=== PATIENT | male | born 1980 | race Caucasian/White ===

== ENCOUNTER 2020-11-26 15:48 | Outpatient (REF) | payer OTHER, SELFPAY ==
--- NOTE | ~2020-11-26 | XR_ITS ---
EXAMINATION: XR CHEST CLINICAL INFORMATION: History of sarcoma. 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 COMPARISON: None TECHNIQUE: 2 views of the chest were obtained. FINDINGS: The cardiac silhouette does not appear enlarged. Hilar and mediastinal contours are unremarkable. There are 2 surgical staple lines seen in the mid and lower right lung. There is an area of lateral pleural thickening and increased adjacent parenchymal density in the right upper lobe. This partially overlies the right scapula. The lungs are otherwise clear. There is no pleural effusion or pneumothorax. There is a surgical clip in the right axilla. There are degenerative changes of the thoracic spine. There are median sternotomy wires. XR/XR chest 2V IMPRESSION: 2 surgical staple lines seen in the right lung. Pleural-parenchymal change in the lateral right upper lobe. This partially overlies the right scapula. Comparison with old outside exams recommended.
--- NOTE | 2020-11-26 15:56 | ECG_ITS ---
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 Rate : 080 BPM Atrial Rate : 080 BPM P-R Int : 124 ms QRS Dur : 086 ms QT Int : 378 ms P-R-T Axes : 049 015 034 degrees QTc Int : 435 ms Normal sinus rhythm Normal ECG No previous ECGs available Referred By: Seng Cavazos Electronically Signed By:ROSS ALVARADO MD
[2020-11-26 16:26] LABS: MANUAL DIFF FLAG NO
[2020-11-26 16:27] LABS: Basophils Absolute Auto 0.1 X10*3/uL (0.0-0.2); Basophils Percent Auto 0.7 % (0-2); Eosinophils Absolute Auto 0.1 X10*3/uL (0.0-0.4); Hematocrit 43.8 % (42-52); Hemoglobin 14.9 g/dl (14.0-18.0); Imm Gran Abs Auto 0.03 X10*3/uL (0.00-0.03); Imm Gran Pct Auto 0.4 % (0.0-0.4); Lymphocytes Absolute Auto 1.3 X10*3/uL (1.2-4.9); Lymphocytes Percent Auto 18.8 % (20-40); Mean Corpuscular Hemoglobin 32.2 pg (27.0-33.0); Mean Corpuscular Volume 94.6 fL (80-98); Mean Platelet Volume 8.7 fL (9.4-12.4); Monocytes Absolute Auto 0.5 X10*3/uL (0.1-1.2); Monocytes Percent Auto 7.1 % (2-11); Neutrophils Absolute Auto 4.9 X10*3/uL (2.0-8.3); Platelet Count 242 X10*3/uL (160-400); Red Blood Count 4.63 X10*6/uL (4.60-5.80); Red Cell Distribution Width 12.5 % (11.0-16.0); White Blood Count 6.9 X10*3/uL (4.8-10.8)
[2020-11-26 17:01] LABS: Alanine Aminotransferase 43 U/L (0-40); Albumin Level 4.5 g/dL (3.5-5.0); Alkaline Phosphatase 46 U/L (39-117); Anion Gap 14 (12-20); Aspartate Amino Transferase 54 U/L (5-37); Bilirubin Total 0.8 mg/dL (0.0-1.0); Blood Urea Nitrogen 15 mg/dL (9-16); Calcium 8.9 mg/dL (8.4-10.2); Carbon Dioxide 30 mmol/L (22-29); Chloride 100 mmol/L (96-108); Estimated Glomerular Filt Rate > 60; Glucose Random 95 mg/dL (60-115); Sodium 140 mmol/L (135-145)
== END 2020-11-26 15:49 | disposition home or self-care (01) ==
LOC: HO.LAB 15:48
PROVIDERS: Visit Provider Family Medicine
DX: C49.9 Malignant neoplasm of connective and soft tissue, unspecified (principal); C78.00 Secondary malignant neoplasm of unspecified lung
CPT/HCPCS: 36415; 71046; 80053; 85025; 93005

== ENCOUNTER → 2020-12-06 13:35 | Outpatient (BNVA) | payer OTHER, SELFPAY | PROVIDERS: PCP Family Medicine; Visit Provider Surgery | DX: K40.90 Unilateral inguinal hernia, without obstruction or gangrene, not specified as recurrent (principal) | CPT/HCPCS: 99202 ==

== ENCOUNTER 2020-12-13 08:11 | Day surgery (SDC) | payer OTHER, SELFPAY ==
--- NOTE | 2020-12-12 10:16 | P.CONAN_ITS ---
Documented by User: Ludivina Amador 12/12/20 11:10 HPI - Anesthesia Eval Consult details Narrative: 40yo M for Right Hernia Repair Inguinal with Mesh s/p bilateral pulm nodules removed 2006 per pcp note. No lobectomy noted. 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 If so, by whom?: No Advance Directives: No Advance Directives Information Provided: No Meds Allergies Allergy/AdvReac Type Severity Reaction Status Date / Time No Known Allergies Allergy Verified 12/07/20 16:33 Home Medications Medication Instructions Recorded Confirmed Last Taken Type No Known Home Meds 12/06/20 12/06/20 Unknown History Exam Exam Date and Time: December 12, 2020 1016 Pertinent Lab Results Pertinent Lab Results: Laboratory Tests 11/26/20 11/26/20 16:06 16:06 WBC 6.9 Hgb 14.9 Hct 43.8 Plt Count 242 Sodium 140 Potassium 4.0 Chloride 100 Carbon Dioxide 30 H BUN 15 Creatinine 0.94 Narrative Narrative: EKG 11/2020 Normal sinus rhythm Normal ECG No previous ECGs available Assessment and Plan Assessment Anesthesia Assessment: Chart Reviewed Documented by User: Nikki Castro 12/13/20 09:34 [facility] Past Medical History 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 If so, by whom?: No Advance Directives: No Advance Directives Information Provided: No Meds Allergies Allergy/AdvReac Type Severity Reaction Status Date / Time No Known Allergies Allergy Verified 12/07/20 16:33 Home Medications Medication Instructions Recorded Confirmed Last Taken Type No Known Home Meds 12/06/20 12/06/20 Unknown History Exam Airway Mallampati Class: II TM Dist: >3cm Neck ROM: Full Loose/Missing/Broken Teeth: No Heart: RRR Lungs: CTA Assessment and Plan Assessment Anesthesia Assessment: Anesthesia Plan Discussed and Chart Reviewed Final Anesthetic Review NPO: Yes ASA Class: II Final Preanesthetic Review: Meds/Allgs Chart Reviewed, Consent Obtained/Reviewed and Anes Risks/Benef Reviewed Patient Risk: Low Procedure Risk: Low Anesthetic Plan Anesthetic Plan: GA Disposition: Standard PACU
[2020-12-13 08:00] VITALS: BMI 24.9
[2020-12-13 08:17] VITALS: BP 125/85; PULSE 76; RESP 18; TEMP 36.1; O2SAT 98
[2020-12-13] MEDS: Lactated Ringers 1,000 ML 100 ML IVCONT (08:27)
--- NOTE | 2020-12-13 09:59 | MHC.SHP ---
Pre-Procedural Eval Section A The patient is an INPATIENT: No Changes since office visit: Yes Patient answered all questions; No Cold of Flu in the past 2 weeks, No New Medical Problems and No Changes in Medication The History & Physical has been completed within 30 days and I have reviewed it.: Yes Section B Chief Complaint: Right Inguinal Hernia Allergies: Allergies Allergy/AdvReac Type Severity Reaction Status Date / Time No Known Allergies Allergy Verified 12/07/20 16:33 Plan Diagnosis/Plan: Unchanged I have reviewed the history and physical and performed a pertinent physical examination on my patient. No changes have occurred unless specified.
--- NOTE | 2020-12-13 11:08 | W.PM.OPN ---
Operative Note Operative Note Date of Service: 12/13/20 Narrative: Preoperative diagnosis: Right inguinal hernia Postoperative diagnosis: Same Procedure: Repair of right inguinal hernia Surgeon: Avery Vicente MD [employer] Technician: Jojo Hodges PA-C Anesthesia: General LMA Indications for procedure: 40-year-old male patient presenting with a palpable mass in the right groin which increases in size with Valsalva and reduces with light pressure. Findings consistent with a reducible right inguinal hernia Operative findings:. Indirect right inguinal hernia Specimen: None Estimated blood loss: 5 mL Complications: None Procedure details: Patient was brought to the OR and placed in a supine position. After administering general anesthesia the patient's abdomen was prepped with ChloraPrep and draped in a sterile fashion. A surgical time-out was called the consent confirmed. Patient received preoperative antibiotics and Venodyne boots were in place. Local anesthesia consisting of 0.5% Sensorcaine with epinephrine was infiltrated over the right inguinal ligament. Incision was then made in oblique fashion over the inguinal ligament. This carried out through subcutaneous tissue past Garry's fashion up to the external oblique aponeurosis. Additional local was infiltrated below the external oblique aponeurosis. This was then incised with a scalpel wide with the Metzenbaum scissors. Spermatic cord was then dissected free from the surrounding inguinal canal and retracted using a [place] drain. Fibers of the cremasteric muscle were then and a indirect sac identified with mainly a lipomatous component identified. This was freed from the surrounding spermatic cord and reduced into the abdominal cavity. A preperitoneal space was created at the internal ring using an open Ray-Eugene sponge. It should be noted at the floor of the inguinal canal was normal without a direct component. An extended large PHS mesh was then obtained. The circular underlay was placed in the preperitoneal space and the overlay secured to the pubic tubercle, conjoined tendon, and shelving edge of the inguinal ligament using a 0 Polysorb suture. A slit was made in the mesh to allow passage of the spermatic cord at the internal ring. This was wrapped around the spermatic cord and secured to the shelving edge of the inguinal ligament using 0 Polysorb suture. The internal ring was created in such a waited to allow the tip of the index finger to pass. Wounds were checked for hemostasis. Wounds were irrigated with saline solution and suctioned dry. External oblique aponeurosis was then closed using a running 2 0 Polysorb suture. Garry's fascia and dermis reapproximated using interrupted 3-0 Polysorb sutures. Skin was then closed using a running subcuticular 4-0 Polysorb suture. Steri-Strips 2 x 2 gauze and Tegaderm were then applied. The patient tolerated the procedure well. Sponge, instrument, needle counts reported as correct. Patient was transferred to PACU in stable condition.
[2020-12-13 11:23] VITALS: BP 131/82; PULSE 78; RESP 16; TEMP 36.4; O2SAT 100
[2020-12-13 11:28] VITALS: BP 128/88; PULSE 78; RESP 18; O2SAT 100
[2020-12-13 11:33] VITALS: BP 122/80; PULSE 76; RESP 18; O2SAT 99
[2020-12-13 11:38] VITALS: BP 129/82; PULSE 73; RESP 18; TEMP 37.2; O2SAT 100
== END 2020-12-13 12:17 | disposition home or self-care (01) ==
PROVIDERS: PCP Family Medicine; Visit Provider Surgery
PROC: (CPT 49505; principal; 2020-12-13 10:20)
DX: K40.90 Unilateral inguinal hernia, without obstruction or gangrene, not specified as recurrent (principal); Z85.831 Personal history of malignant neoplasm of soft tissue; Z90.2 Acquired absence of lung [part of]
CPT/HCPCS: 49505; C1781; J0690; J1100; J1885; J2250; J2405; J3010

== ENCOUNTER → 2020-12-25 13:04 | Outpatient (BNVA) | payer OTHER, SELFPAY | PROVIDERS: PCP Family Medicine; Visit Provider Surgery | DX: K40.90 Unilateral inguinal hernia, without obstruction or gangrene, not specified as recurrent (principal) | CPT/HCPCS: 99212 ==

== ENCOUNTER → 2021-01-17 13:33 | Outpatient (BNVA) | payer OTHER, SELFPAY | PROVIDERS: PCP Family Medicine; Visit Provider Surgery | DX: K40.90 Unilateral inguinal hernia, without obstruction or gangrene, not specified as recurrent (principal) | CPT/HCPCS: 99212 ==

== ENCOUNTER 2021-01-25 10:05 | Outpatient (REF) | payer OTHER, SELFPAY ==
--- NOTE | ~2021-01-25 | XR_ITS ---
EXAMINATION: XR CERVICAL SPINE XR THORACIC SPINE CLINICAL INFORMATION: Uveitis COMPARISON: Chest radiograph on 11/26/2020. TECHNIQUE: AP, open-mouth odontoid, lateral, and both oblique views of the cervical spine and AP and lateral views of the thoracic spine. FINDINGS: Cervical Spine: There are no prevertebral soft tissue or bony abnormalities demonstrated. No compression fractures or subluxations are identified. Alignment is maintained at the atlanto-axial articulation. The disc spaces are preserved. No endplate changes are seen. The prevertebral soft tissues are normal. The foramina are patent. Thoracic Spine: Sternotomy wires project over the chest. Thoracic vertebral body heights appear maintained. Intervertebral disc heights are maintained. Alignment is normal. No endplate changes are identified. The paravertebral soft tissues are within normal limits. XR/XR thoracic spine 3V IMPRESSION: Unremarkable radiographs of the cervical and thoracic spine.
--- NOTE | ~2021-01-25 | XR_ITS ---
EXAMINATION: XR CERVICAL SPINE XR THORACIC SPINE CLINICAL INFORMATION: Uveitis COMPARISON: Chest radiograph on 11/26/2020. TECHNIQUE: AP, open-mouth odontoid, lateral, and both oblique views of the cervical spine and AP and lateral views of the thoracic spine. FINDINGS: Cervical Spine: There are no prevertebral soft tissue or bony abnormalities demonstrated. No compression fractures or subluxations are identified. Alignment is maintained at the atlanto-axial articulation. The disc spaces are preserved. No endplate changes are seen. The prevertebral soft tissues are normal. The foramina are patent. Thoracic Spine: Sternotomy wires project over the chest. Thoracic vertebral body heights appear maintained. Intervertebral disc heights are maintained. Alignment is normal. No endplate changes are identified. The paravertebral soft tissues are within normal limits. XR/XR cervical spine 3V IMPRESSION: Unremarkable radiographs of the cervical and thoracic spine.
[2021-01-25 11:41] LABS: MANUAL DIFF FLAG NO
[2021-01-25 11:51] LABS: Eosinophils Absolute Auto 0.1 X10*3/uL (0.0-0.4); Eosinophils Percent Auto 2.1 % (0-4); Hematocrit 45.3 % (42-52); Hemoglobin 15.3 g/dl (14.0-18.0); Imm Gran Abs Auto 0.02 X10*3/uL (0.00-0.03); Imm Gran Pct Auto 0.5 % (0.0-0.4); Lymphocytes Absolute Auto 1.3 X10*3/uL (1.2-4.9); Lymphocytes Percent Auto 35.2 % (20-40); Mean Corpuscular HGB Conc 33.8 g/dl (31.0-36.0); Mean Corpuscular Hemoglobin 31.3 pg (27.0-33.0); Mean Corpuscular Volume 92.6 fL (80-98); Monocytes Absolute Auto 0.3 X10*3/uL (0.1-1.2); Monocytes Percent Auto 8.4 % (2-11); Neutrophils Percent Auto 52.8 % (45-73); Platelet Count 247 X10*3/uL (160-400); Red Blood Count 4.89 X10*6/uL (4.60-5.80); Red Cell Distribution Width 12.4 % (11.0-16.0); White Blood Count 3.8 X10*3/uL (4.8-10.8)
[2021-01-25 12:35] LABS: Erythrocyte Sedimentation Rate 2 MM/HR (0-15)
[2021-01-26 08:36] LABS: EBV-VCA IgM Ab <36.00 U/mL
[2021-01-26 12:11] LABS: Anti DNA DS Antibody <1 IU/mL; Antibody to SS-A Antigen <1.0 NEG AI (<1.0 NEG); Antibody to SS-B Antigen <1.0 NEG AI (<1.0 NEG)
[2021-01-29 14:28] LABS: Anti Nuclear Antibody Screen NEGATIVE (NEGATIVE)
[2021-01-31 22:42] LABS: Smooth Muscle Antibody <20 U (<20)
== END 2021-01-25 10:06 | disposition home or self-care (01) ==
LOC: HO.LAB 10:05
PROVIDERS: PCP Family Medicine; Visit Provider Family Medicine
DX: R79.9 Abnormal finding of blood chemistry, unspecified (principal); H20.9 Unspecified iridocyclitis
CPT/HCPCS: 72040; 72072; 85025; 85652; 86038; 86039; 86225; 86235; 86255; 86664; 86665

== ENCOUNTER 2022-02-27 09:10 | Outpatient (REF) | payer OTHER, SELFPAY ==
--- NOTE | ~2022-02-27 | XR_ITS ---
EXAMINATION: XR CHEST CLINICAL INFORMATION: History sarcoma. 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 COMPARISON: Chest radiographs 11/26/2020, radiographs cervical spine and thoracic spine 01/25/2021 TECHNIQUE: 2 views of the chest were obtained. FINDINGS: There are postsurgical changes similar to prior exam 11/26/2020 with sternotomy wires, fine chain salvador right mid and lateral chest, right surgical clips and right upper lateral hemithorax pleural parenchymal density, likely scarring. There is no interval pulmonary parenchymal lesion. No airspace consolidation or groundglass opacity. No effusion. The costophrenic sulci are clear. The vascularity is normal. The heart is normal in size. The hilar and mediastinal contours are unremarkable. XR/XR chest 2V IMPRESSION: -Postsurgical changes similar to prior exam 11/26/2020. -No acute intrathoracic disease.
[2022-02-27 09:30] LABS: MANUAL DIFF FLAG NO
--- NOTE | 2022-02-27 09:31 | ECG_ITS ---
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 Rate : 064 BPM Atrial Rate : 064 BPM P-R Int : 124 ms QRS Dur : 084 ms QT Int : 426 ms P-R-T Axes : 050 023 028 degrees QTc Int : 439 ms Normal sinus rhythm Normal ECG When compared with ECG of 26-NOV-2020 16:01, No significant change was found Referred By: Seng Cavazos Electronically Signed By:Ravi Watkins
[2022-02-27 09:42] LABS: Basophils Absolute Auto 0.1 X10*3/uL (0.0-0.2); Basophils Percent Auto 1.4 % (0-2); Eosinophils Absolute Auto 0.1 X10*3/uL (0.0-0.4); Eosinophils Percent Auto 3.9 % (0-4); Hematocrit 39.3 % (42.0-52.0); Hemoglobin 13.6 g/dl (14.0-18.0); Imm Gran Abs Auto 0.01 X10*3/uL (0.00-0.03); Imm Gran Pct Auto 0.3 % (0.0-0.4); Lymphocytes Absolute Auto 0.8 X10*3/uL (1.2-4.9); Lymphocytes Percent Auto 21.9 % (20-40); Mean Corpuscular HGB Conc 34.6 g/dl (31.0-36.0); Mean Corpuscular Hemoglobin 33.3 pg (27.0-33.0); Mean Corpuscular Volume 96.1 fL (80.0-98.0); Mean Platelet Volume 8.5 fL (9.4-12.4); Monocytes Absolute Auto 0.3 X10*3/uL (0.1-1.2); Monocytes Percent Auto 9.4 % (2-11); Neutrophils Absolute Auto 2.3 x10*3/uL (2.0-8.3); Neutrophils Percent Auto 63.1 % (45-73); Platelet Count 223 X10*3/uL (160-400); Red Blood Count 4.09 X10*6/uL (4.60-5.80); Red Cell Distribution Width 13.4 % (11.0-16.0); White Blood Count 3.6 X10*3/uL (4.8-10.8)
== END 2022-02-27 09:11 | disposition home or self-care (01) ==
LOC: HO.LAB 09:10
PROVIDERS: PCP Family Medicine; Visit Provider Family Medicine
DX: C78.00 Secondary malignant neoplasm of unspecified lung (principal)
CPT/HCPCS: 36415; 71046; 85025; 93005

== ENCOUNTER 2023-01-01 07:34 | Outpatient (REF) | payer OTHER, SELFPAY ==
[2023-01-01 10:16] LABS: MANUAL DIFF FLAG NO
[2023-01-01 10:26] LABS: Eosinophils Absolute Auto 0.1 X10*3/uL (0.0-0.4); Eosinophils Percent Auto 2.3 % (0-4); Hematocrit 42.9 % (42.0-52.0); Hemoglobin 14.1 g/dl (14.0-18.0); Imm Gran Abs Auto 0.03 X10*3/uL (0.00-0.03); Imm Gran Pct Auto 0.8 % (0.0-0.4); Lymphocytes Absolute Auto 1.2 X10*3/uL (1.2-4.9); Lymphocytes Percent Auto 30.4 % (20-40); Mean Corpuscular HGB Conc 32.9 g/dl (31.0-36.0); Mean Corpuscular Hemoglobin 32.4 pg (27.0-33.0); Mean Corpuscular Volume 98.6 fL (80.0-98.0); Mean Platelet Volume 9.3 fL (9.4-12.4); Monocytes Absolute Auto 0.4 X10*3/uL (0.1-1.2); Monocytes Percent Auto 9.6 % (2-11); Neutrophils Absolute Auto 2.2 x10*3/uL (2.0-8.3); Neutrophils Percent Auto 55.9 % (45-73); Platelet Count 341 X10*3/uL (160-400); Red Blood Count 4.35 X10*6/uL (4.60-5.80); Red Cell Distribution Width 13.3 % (11.0-16.0); White Blood Count 3.9 X10*3/uL (4.8-10.8)
== END 2023-01-01 07:35 | disposition home or self-care (01) ==
LOC: HO.10HDL 07:34
PROVIDERS: Visit Provider Family Medicine
DX: D64.9 Anemia, unspecified (principal)
CPT/HCPCS: 36415; 85025

== ENCOUNTER 2024-10-14 07:35 | Outpatient (REF) | payer OTHER, SELFPAY ==
[2024-10-14 12:05] LABS: Alanine Aminotransferase 87 U/L (0-40); Albumin Level 4.3 g/dL (3.5-5.0); Alkaline Phosphatase 52 U/L (39-117); Aspartate Amino Transferase 129 U/L (5-37); Bilirubin Direct 0.3 mg/dL (0.0-0.5); Bilirubin Total 0.9 mg/dL (0.0-1.0); Cholesterol 221 mg/dL (<200); HDL Cholesterol 50 mg/dL (>40); LDL Cholesterol Calculated 149 mg/dL (<100); Total Protein 7.1 g/dL (6.5-8.0); Triglycerides 112 mg/dL (<150)
== END 2024-10-14 07:36 | disposition home or self-care (01) ==
LOC: HO.10HDL 07:35
PROVIDERS: Visit Provider Family Medicine
DX: R94.5 Abnormal results of liver function studies (principal); E78.00 Pure hypercholesterolemia, unspecified
CPT/HCPCS: 36415; 80061; 80076; 82550

== ENCOUNTER 2025-07-31 10:31 | Outpatient (AMB) | payer OTHER, SELFPAY ==
--- NOTE | 2025-07-31 09:47 | A.OFFPC_ITS ---
Vital Signs 07/31/25 10:39 Height 5 ft 10 in Weight 161 lb 8 oz BMI 23.2 BP 124/80 Blood Pressure Location Lt brachial Position Sitting Pulse 81 Pulse Source Pulse Oximeter Temp 97.1 F Temp Source Temporal Artery Scan Pulse Oximetry (%) 98 Oxygen Delivery Method Room Air Intake Visit Reasons: JESSY/Dr Cavazos Enologist Required: No Accompanied by: Self / Same As Patient Allergies No Known Allergies Allergy (Verified 07/31/25 09:48) Medication List - Last Reconciled 07/31/25 by Darrell Ross MD fenofibrate nanocrystallized 48 mg PO DAILY 30 days Tobacco use date assessed: 07/31/25 Dental Screening Dental Screen Date: 07/31/25 Did you have a dental visit in the last 12 months?: Yes Did you have a dental problem in the last 6 months where you did not have access to dental care?: No HPI HPI Comments History of Present Illness Details The patient is a 45-year-old male presenting for a general health evaluation and management of chronic conditions. 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 The patient takes fenofibrate for high triglycerides. Blood work from October of this year showed elevated liver enzymes, with levels over 80, which he believes may be associated with his high triglycerides. He has been working on his diet and has cut down on alcohol consumption, which is now limited to 4-5 drinks on weekends. He has a history of a hernia repair and currently has an umbilical hernia, which is asymptomatic. 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 Diagnostic Results: - Labs from October of this year showed elevated liver enzymes (over 80) and elevated cholesterol. [facility] Medical History (Updated 07/31/25 @ 10:54 by Darrell Ross MD) Umbilical hernia Hyperlipidemia Elevated liver enzymes Sarcoma Surgical History H/O right inguinal hernia repair Status post lobectomy of lung Family History (Updated 07/31/25 @ 10:42 by Cindy Lopez MA) Mother No problems noted. Father No problems noted. Social History Housing: House Alcohol intake: current Patient Tobacco Use Status: Never used Tobacco e-Cigarette/Vaping Use: Never Used service: No Current occupational status: employed Cognitive needs: No Hearing needs: No Vision needs: No Questionnaire PHQ-9 Over the last 2 weeks, how often have you been bothered by any of the following problems? 1. Little interest or pleasure in doing things: not at all 2. Feeling down, depressed, or hopeless: not at all 3. Trouble falling or staying asleep, or sleeping too much: not at all 4. Feeling tired or having little energy: not at all 5. Poor appetite or overeating: not at all 6. Feeling bad about yourself - or that you are a failure or have let yourself or your family down: not at all 7. Trouble concentrating on things, such as reading the newspaper or watching television: not at all 8. Moving or speaking so slowly that other people could have noticed. Or the opposite - being so fidgety or restless that you have been moving around a lot more than usual: not at all 9. Thoughts that you would be better off or of hurting yourself in some way: not at all Total score: 0 Depression Screening Interpretation: Negative Depression Screening Done: Yes 55776 - PHQ-9 Billing: Yes Source: Developed by Drs. Joel Penn, Calista Hickman, Gautam Contreras and colleagues, with an educational jazzmine from [employer]. Thrive Questionnaire Date Thrive assessed: 07/31/25 I am a: Patient What is your living situation today?: I have a steady place to live Within the past 12 months, did the food you bought not last and you didn't have the money to get more?: Never true Within the past 12 months, did you worry whether your food would run out before you got money to buy more?: Never true Do you have trouble paying for medicines?: No Do you have trouble getting transportation to medical appointments?: No Do you have trouble paying your heating and electricity bill?: No Do you have trouble taking care of your child, family member or friend?: No Do you have trouble with day-to-day activities such as bathing, preparing meals, shopping, managing finances, etc.?: No Are you currently unemployed and looking for a job?: No Are you interested in more education?: No THRIVE Score: 0 AUDIT C Alcohol Use Questionnaire (AUDIT-C) 1. How often do you have a drink containing alcohol?: Monthly or less 2. How many drinks containing alcohol do you have on a typical day when you are drinking?: 1 or 2 3. How often do you have six or more drinks on one occasion?: Less than monthly Total Score: 2 Score Reviewed/Action Taken: Yes MARGARET-7 AMB Questionnaire MARGARET-7 Date MARGARET - 7 assessed: 07/31/25 Feeling nervous, anxious, or on edge: 0 = Not at all Not being able to stop or control worryin = Not at all Worrying too much about different things: 0 = Not at all Trouble relaxin = Not at all Being so restless that it is hard to sit still: 0 = Not at all Becoming easily annoyed or irritable: 0 = Not at all Feeling afraid as if something awful might happen: 0 = Not at all Total MARGARET-7 score (0-4 normal; 5-9 mild; 10-14 moderate; 15-21 severe): 0 Source: Developed by Drs. Joel Penn, Calista Hickman, Gautam Contreras and colleagues, with an educational jazzmine from [employer]. MARGARET-7 Assessment Billing MARGARET-7 Assessment Tool: MARGARET-7 Assessment 87995 Review of Systems Narrative - General: Denies weight loss. - Cardiovascular: Denies chest pain. - Respiratory: Denies shortness of breath. - Gastrointestinal: Reports normal urination and bowel movements. Denies nausea and vomiting. - Neurological: Denies headaches. - Ophthalmologic: Denies change in vision. - Musculoskeletal: Denies joint pains. - Allergic/Immunologic: Denies allergies. All systems reviewed & are unremarkable except as reviewed in HPI and above Physical exam (Primary Care) Vital Signs: Last Vital Signs Temp 97.1 F 07/31/25 10:39 Pulse 81 07/31/25 10:39 BP 124/80 07/31/25 10:39 Pulse Ox 98 07/31/25 10:39 Oxygen Delivery Method Room Air 07/31/25 10:39 BMI result Body Mass Index 23.2 Tobacco/Smoking Status: Tobacco use Status Tobacco use date assessed 07/31/25 07/31/25 09:49 Patient Tobacco Use Status Never used Tobacco 07/31/25 09:49 e-Cigarette/Vaping Use Never Used 07/31/25 09:49 PHQ-9: PHQ-9 Score PHQ-9: Total score 0 07/31/25 09:49 Depression Screening Interpretation: Negative Thrive Assessment: Date of Thrive Assessment Date Thrive assessed 07/31/25 07/31/25 09:49 Narrative General: Alert and oriented, Well nourished, No acute distress. Eye: Pupils are equal, round and reactive to light, Intact accommodation, Ex traocular movements are intact, Normal conjunctiva, Vision unchanged. HENT: Normocephalic, Atraumatic, Tympanic membranes are clear, Normal hearing, Oral mucosa is moist, No pharyngeal erythema, Ear canals patent. Respiratory: Lungs CTA bilaterally, No wheeze, Respirations are non-labored. Cardiovascular: Regular rate, Regular rhythm, S1 auscultated, S2 auscultated, No murmur, Good pulses equal in all extremities, Normal peripheral perfusion, No edema. Gastrointestinal: Soft, Non-tender, Non-distended, Normal bowel sounds, No organomegaly. Musculoskeletal: Normal range of motion, Normal strength, No tenderness, No swelling, No deformity, Normal gait. Integumentary: Warm, Dry, [place], Intact. Neurologic: Alert, Oriented, Normal sensory, Normal motor function, No focal defects, Cranial Nerves II-XII are grossly intact, Normal deep tendon reflexes. Psychiatric: Cooperative, Appropriate mood & affect, Normal judgment. Coding Level of Care Code New Pt Prev Care 40-64y(69046) Diagnoses Elevated liver enzymes R74.8 Other hyperlipidemia E78.49 Hyperlipidemia type: other hyperlipidemia Umbilical hernia without obstruction and without gangrene K42.9 Obstruction and gangrene presence: without obstruction or gangrene Additional Codes PHQ-9 - 56126 - PHQ-9 Billing: Yes ([id number]) MARGARET-7 Assessment Billing - MARGARET-7 Assessment Tool: MARGARET-7 Assessment 18733 ([id number]) Assessment & Plan Assessment & Plan (1) Elevated liver enzymes: Comment: - The patient's liver enzymes were over 80 on prior labs, which is concerning. - The plan is to obtain a baseline set of labs, including a lipid panel, liver function tests, and a hepatitis panel, to rule out causes like hepatitis. - If enzymes remain elevated, an ultrasound will be considered to assess for fatty liver disease. Code(s): R74.8 - Abnormal levels of other serum enzymes Category: Medical (2) Hyperlipidemia: Comment: - Elevated lipid panel in October of 2024 - He will continue taking fenofibrate, and an additional cholesterol medication may be added depending on the new lab results. Code(s): E78.5 - Hyperlipidemia, unspecified Category: Medical Qualifiers: Hyperlipidemia type: other hyperlipidemia Qualified Code(s): E78.49 - Other hyperlipidemia (3) Umbilical hernia: Comment: - The hernia is not causing any problems. - The plan is watchful waiting. - If it becomes symptomatic, a surgical consultation will be arranged. Code(s): K42.9 - Umbilical hernia without obstruction or gangrene Category: Medical Qualifiers: Obstruction and gangrene presence: without obstruction or gangrene Qualified Code(s): K42.9 - Umbilical hernia without obstruction or gangrene Plan: Health Maintenance: - Ordered screening colonoscopy due to patient's age (45 years old). - Ordered baseline labs including CBC, electrolytes, glucose, hepatitis panel, liver panel, HIV, thyroid studies, syphilis test, and vitamin D level. - Discussed lifestyle modifications including dietary changes and reducing alcohol intake. Patient was informed and verbally consented to the use of an ambient scribe for clinic note documentation during this visit. Plan I have explained to the patient that since this is our first visit, I wish to obtain a comprehensive set of baseline labs to get a full picture of his health. I noted that his prior labs showed elevated liver enzymes over 80, which is concerning. I discussed that the new labs will help clarify if this is related to his alcohol use (which he has decreased), fatty liver disease, or a potential hepatitis infection. I informed him that if the liver enzymes remain elevated, the next step would be a liver ultrasound. We will continue his fenofibrate for now and may add another cholesterol medication based on the new results. I also explained that at age 45, it is time for a screening colonoscopy, which I will order for him. Regarding his asymptomatic umbilical hernia, I advised a watchful waiting approach, as we typically do not intervene unless it starts causing problems. I advised him to sign up for the patient portal to view results and communicate, and scheduled a follow-up in six months. Orders: Orders Comprehensive Met. Panel Today Z76.89 - Persons encountering health services in other specified circumstances Hepatitis A,B,C Profile Today Z76.89 - Persons encountering health services in other specified circumstances Syphilis Screen Today Z76.89 - Persons encountering health services in other specified circumstances Complete Blood Count Auto Diff Today Z76.89 - Persons encountering health services in other specified circumstances Hemoglobin A1c Today Z76.89 - Persons encountering health services in other specified circumstances HIV Ab/Ag Today Z76.89 - Persons encountering health services in other specified circumstances Lipid Panel Today Z76.89 - Persons encountering health services in other specified circumstances TSH reflex Free T4 Today Z76.89 - Persons encountering health services in other specified circumstances Vitamin D 25-OH Total Today Z76.89 - Persons encountering health services in other specified circumstances Referrals Open Access Screening Colonoscopy Referral Z12.11 - Encounter for screening for malignant neoplasm of colon Patient Instructions: - Continue taking your fenofibrate medication as prescribed. - Go to the lab across the [place] today to have your blood drawn for the ordered tests. - A request for a colonoscopy has been ordered. The scheduling office will contact you directly to set up the appointment. - Scan the provided QR code to sign up for the patient portal. This will allow you to see your results and communicate with my office. - Unless it becomes painful or causes problems, you do not need to do anything about your umbilical hernia. - Plan to follow up in the office in about six months.
[2025-07-31 10:39] VITALS: BP 124/80; PULSE 81; TEMP 36.2; O2SAT 98; BMI 23.2
--- OUTSIDE RECORDS SUMMARY | 2025-07-31 12:49 | XMS_ITS | Encounter Summary ---
Author Organization [facility] Address [address] [place] [phone] Phone Care Team Providers Care Corrections Nurse Name Role Phone Seng Cavazos MD Primary Care Provider [phone] Chau Garcia MD Unavailable [phone] Encounter Details Date Type Department Care Team (Late st Contact Info) Description 09/01/2016 Procedure Pass [facility] [address] [facility]th [place] [address] Social History Tobacco Use Types Packs/Day Years Used Date Smoking Tobacco: Never Smokeless Tobacco: Never Alcohol Use Standard Drinks/Week Comments Yes 3 (1 standard drink = 0.6 oz pur e alcohol) 25 drinks/week Sex and Gender Information Value Date Recorded Sex Assigned at Not on file Legal Sex Male 7:27 PM EST Gender Identity Not on file Sexual Orientation Not on file documented as of this encounter Plan of Treatment Not on file documented as of this encounter Visit Diagnoses Not on filedocumented in this encounter Care Teams Corrections Nurse Relationship Specialty Start Date End Date Seng Cavazos MD [address] [place] [address] [place] [address] PCP - General 04/04/14 Chau Garcia MD [address] [place] [id number] [email or web address] Orthopedic Surgeon Orthopedic Surgery 07/21/19 documented as of this encounter Additional Source Comments The information contained in this document represents components of the legal health record. It is not the complete legal health record.[facility]
--- OUTSIDE RECORDS SUMMARY | 2025-07-31 12:49 | XMS_ITS | Clinical Summary ---
Author Organization [facility] Address [address] [place] [address] Phone Care Team Providers Care Customer Service Advocate Name Role Phone Seng Cavazos MD Primary Care Provider [phone] Chau Garcia MD Unavailable [phone] Allergies Active Allergy Reactions Criticality Noted Date Comments [place] Pollen-Short Ragweed Sneezing,Other (See Comments) High 08/22/2013 Itchy, watery eyes Medications No known medications Active Problems Problem Noted Date Diagnosed Date Sebaceous cyst 11/09/2018 Synovial sarcoma 09/01/2016 Assessment & Plan (11/10/2018 5:46 AM EST): Feels great; has no complaints of pain. Reports full function of his right upper extremity. Denies weakness, numbness/tingling in upper extremities. No reduction in exercise tolerance. Denies all constitutional symptoms of fevers, chills, weight loss (stable, lean physique). No nocturnal pain, night-sweats, headaches, fatigue, or bone pain. Denies chest pain, palpitations, SOB, HAMLIN, hemoptysis, cough or other focal neurological deficits. No rashes or skin issues. No problems with bowel or bladder function. No change in appetite, abdominal pain, nausea/vomiting. He does not do self-exams of operative site; encouraged to do so. No palpable masses on exam. Reviewed and discussed imaging reports extensively. Chest x-ray showed no evidence of metastatic disease. Showed him his sternotomy cerclage wires and surgical clips, which he was familiar with. Reviewed and discussed PROMs ([facility]) survey. Physical score was 61.9 same as last time, more than norm (45). Mental score stable at 62.5, improved from 56 the last time, above the norm (45). No clinical or radiographic evidence of progressive/recurrent disease. We had a lengthy discussion about oncologic surveillance. Technically, he is considered cured. Since his insurance was changed to [employer], which is not contracted with [facility], his PCP can monitor him on an annual basis with a chest x- ray and post-chemo surveillance labs. Reinforced rationale for continued surveillance (rare occurrence of leukemia s/p chemo and rare occurrence of radiation induced sarcoma). His mother noted that now she will be anxious about this; reassured her that these occurrences are rare and he is generally doing well. Counseled on long-term effects of chemotherapy and RT. I will write a note to his PCP, Dr. Cavazos about annual surveillance. Post-chemo surveillance investigations should include CMP, CBC and differential, and ECG (post cardiotoxic adriamycin) with CXR. All concerns addressed. All their questions were answered. Will continue to follow up with PCP (he was the MD who found the axilla tumor) for further surveillance/survivorship visits, due to insurance challenges. Advised to call in case of any questions/concerns. Reinforced can schedule appointment in case of any concerns about disease recurrence/metastases. 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 No carlyle-incisional numbness/tingling; full motion RUE Chest x-ray showed postoperative changes in right lung, no evidence of metastatic disease. Advised annual chest x-rays, labs, and ECG with PCP, for monitoring, post-chemotherapy surveillance. Can also follow up with medical and radiation oncologists who treated him with chemo and RT, if they accept [facility] insurance; or just see PCP as discussed in detail. History of radiation therapy 10/05/2004 Overview (08/26/2017): Preoperative radiotherapy to the right shoulder to [address] in [facility] was completed in 2004 Assessment & Plan (11/10/2018 5:49 AM EST): S/p radiation. Denies skin issues or new lumps. Usually sees radiation oncologist, Dr. Car, for surveillance. No fibrosis or hyperpigmentation in the radiation field. Since his insurance will not cover any further visits with the [facility] Sarcoma team, appointment with Radiation Oncology was canceled today to eliminate a self-pay charge. Counseled on long-term effects of chemotherapy and RT. Family History Medical History Relation Comments Hypertension Father Coronary artery disease Maternal Grandfather Microcephaly Maternal Grandfather Coronary artery disease Mother Relation Status Comments Father Alive Maternal Grandfather Alive Mother Alive Social History Tobacco Use Types Packs/Day Years Used Date Smoking Tobacco: Never Smokeless Tobacco: Never Alcohol Use Standard Drinks/Week Comments Yes 3 (1 standard drink = 0.6 oz pur e alcohol) 25 drinks/week Education Answer Date Recorded Are you interested in more education? Not on kellie e 01/29/2023 Are you concerned about learning? Not on file 01/29/2023 No 01/29/2023 No 01/29/2023 Digital Access Answer Date Recorded No 03/02/2023 No 03/02/2023 No 03/02/2023 Reliable internet access at home? Not on file 03/02/2023 Device with a working camera? Not on file Sex and Gender Information Value Date Recorded Sex Assigned at Not on file Legal Sex Male 7:27 PM EST Gender Identity Not on file Sexual Orientation Not on file Last Filed Vital Signs Vital Sign Reading Time Taken Comments Blood Pressure 113/80 11/08/2018 10:29 AM EST Pulse 71 11/08/2018 10:29 AM EST Temperature - - Respiratory Rate - - Oxygen Saturation - - Inhaled Oxygen Concentration - - Weight 72.6 kg (160 lb) 11/08/2018 10:29 AM EST Height 177.8 cm (5' 10 ) 11/08/2018 10:29 AM EST Body Mass Index 22.96 11/08/2018 10:29 AM EST Plan of Treatment Health Maintenance Due Date Last Done Comments LIPID PANEL 1980 DEPRESSION SCREENING 1992 HEPATITIS C SCREENING 1998 HIV ONE-TIME SCREENING (18-6 5 YEARS) 1998 PNEUMOCOCCAL VACCINES (0-49 years) (1 of 2 - PCV) 1999 Adult Td,Tdap Booster 01/06/2023 01/06/2013 INFLUENZA VACCINE (#1) 2025 COLOGUARD 2025 COLONOSCOPY 2025 COLORECTAL CANCER SCREENING 2025 FIT TEST 2025 FOBT 2025 SIGMOIDOSCOPY 2025 VIRTUAL COLONOSCOPY 2025 COVID-19 VACCINE (2 - 2024-2 6 season) 2025 12/28/2020 SMOKING STATUS SCREENING (On ce After 26 Yrs) Completed 11/10/2018 HEPATITIS A VACCINES Aged Out No long er eligible based on patient's age to complete this topic HIB VACCINES Aged Out No longer eligi ble based on patient's age to complete this topic MENINGOCOCCAL VACCINES (ACWY) Aged Out No longer eligible based on patient's age to complete this topic MENINGOCOCCAL VACCINES (B) Aged Out N o longer eligible based on patient's age to complete this topic Medical Devices Not on file Insurance [employer] [facility] [employer] [facility] Care Teams Customer Service Advocate Relationship Specialty Start Date End Date Seng Cavazos MD [address] [place] [address] [place] [address] PCP - General 04/04/14 Chau Garcia MD [address] [place] [phone] [email or web address] Orthopedic Surgeon Orthopedic Surgery 07/21/19 Additional Source Comments The information contained in this document represents components of the legal health record. It is not the complete legal health record.[facility]
== END 2025-07-31 10:54 | disposition home or self-care (01) ==
LOC: HO.HMCHD 10:32
PROVIDERS: PCP Student in an Organized Health Care Education/Training Program; Visit Provider Student in an Organized Health Care Education/Training Program
DX: Z00.00 Encounter for general adult medical examination without abnormal findings (principal); R74.8 Abnormal levels of other serum enzymes; E78.49 Other hyperlipidemia; K42.9 Umbilical hernia without obstruction or gangrene

== ENCOUNTER → 2025-07-31 10:31 | Outpatient (BNVA) | payer OTHER, SELFPAY | PROVIDERS: PCP Student in an Organized Health Care Education/Training Program; Visit Provider Student in an Organized Health Care Education/Training Program | DX: R74.8 Abnormal levels of other serum enzymes (principal); E78.49 Other hyperlipidemia; K42.9 Umbilical hernia without obstruction or gangrene; Z13.31 Encounter for screening for depression; Z13.39 Encounter for screening examination for other mental health and behavioral disorders | CPT/HCPCS: 96127 ==

== ENCOUNTER 2025-07-31 10:54 | Outpatient (REF) | payer OTHER, SELFPAY ==
[2025-07-31 13:25] LABS: MANUAL DIFF FLAG NO
[2025-07-31 13:30] LABS: Hematocrit 45.9 % (42.0-52.0); Hemoglobin 15.1 g/dl (14.0-18.0); Imm Gran Abs Auto 0.02 X10*3/uL (0.00-0.03); Imm Gran Pct Auto 0.3 % (0.0-0.4); Lymphocytes Absolute Auto 1.0 X10*3/uL (1.2-4.9); Mean Corpuscular HGB Conc 32.9 g/dl (31.0-36.0); Mean Corpuscular Hemoglobin 32.7 pg (27.0-33.0); Mean Corpuscular Volume 99.4 fL (80.0-98.0); NRBC Abs Auto 0.000 X10*3/uL (0.0-0.012); NRBC Pct Auto 0.0 /100WBC (0.0-0.2); Platelet Count 178 X10*3/uL (160-400); Red Blood Count 4.62 X10*6/uL (4.60-5.80); White Blood Count 6.3 X10*3/uL (4.8-10.8)
[2025-07-31 13:32] LABS: Alanine Aminotransferase 42 U/L (0-40); Albumin Level 4.5 g/dL (3.5-5.0); Alkaline Phosphatase 64 U/L (39-117); Anion Gap 13 (12-20); Aspartate Amino Transferase 74 U/L (5-37); Blood Urea Nitrogen 8 mg/dL (9-16); Calcium 9.4 mg/dL (8.4-10.2); Carbon Dioxide 29 mmol/L (22-29); Chloride 102 mmol/L (96-108); Cholesterol 167 mg/dL (<200); Estimated Glomerular Filt Rate > 60; HDL Cholesterol 36 mg/dL (>40); Potassium 3.5 mmol/L (3.3-5.1); Sodium 140 mmol/L (135-145); Total Protein 7.1 g/dL (6.5-8.0); Triglycerides 241 mg/dL (<150)
[2025-07-31 13:49] LABS: Syphilis Screen Nonreactive (Nonreactive)
[2025-07-31 13:50] LABS: HBS Num1 0.00 mIU/mL (0-7.99); HBc Num1 0.04 S/CO (0.00-0.79); HBsAGNum1 0.35 S/CO (0.00-0.99); HIV Num 1 0.05 S/CO (0.00-0.99); Hepatitis A Antibody IgM 0.29 Index (0-0.79); Hepatitis B Surface Antigen Negative (Negative); ~HepC Num1 0.08 S/CO (0.00-0.79); ~Hepatitis A Antibody IgM Nonreactive (Nonreactive); ~Hepatitis B Surface Antibody NONREACTIVE (Nonreactive); ~Hepatitis C Antibody Nonreactive (Nonreactive)
== END 2025-07-31 10:55 | disposition home or self-care (01) ==
LOC: HO.10HDL 10:54
PROVIDERS: Visit Provider Student in an Organized Health Care Education/Training Program
DX: Z76.89 Persons encountering health services in other specified circumstances (principal); Z13.1 Encounter for screening for diabetes mellitus; Z13.6 Encounter for screening for cardiovascular disorders; Z13.29 Encounter for screening for other suspected endocrine disorder
CPT/HCPCS: 36415; 80053; 80061; 82306; 83036; 84443; 85025; 86704; 86706; 86709; 86780; 86803; 87340; 87389

== ENCOUNTER 2025-09-14 10:19 | Outpatient (REF) | payer OTHER, SELFPAY ==
--- NOTE | ~2025-09-14 | US_ITS ---
EXAMINATION: US ABDOMEN LIMITED CLINICAL INFORMATION: R74.8 - Abnormal levels of other serum enzymes. COMPARISON: None available. TECHNIQUE: Real-time imaging of the right upper quadrant abdominal viscera. FINDINGS: PANCREAS: Visualized portions are unremarkable. LIVER: Mild hepatomegaly measuring 17.9 cm. The liver contour is normal. There is mild diffuse increased liver parenchymal echogenicity, compatible with mild hepatic steatosis. No focal hepatic lesion seen. There is no intrahepatic biliary duct dilatation seen. Main portal vein is patent. GALLBLADDER: The gallbladder is physiologically distended without evidence of stones, sludge, polyps, wall thickening or pericholecystic fluid. COMMON BILE DUCT: Normal in caliber measuring 0.4 cm in diameter. RIGHT KIDNEY: No hydronephrosis. No renal calculi or focal parenchymal lesions seen. The kidney measures 11.5 cm in maximum dimension. FREE FLUID: None. US/US abdomen limited IMPRESSION: Mild hepatomegaly with sonographic features compatible with mild hepatic steatosis. Electronically signed by: Rio Mike MD 09/14/2025 11:16 AM [facility]
== END 2025-09-14 10:20 ==
LOC: HO.US 10:19
PROVIDERS: PCP Student in an Organized Health Care Education/Training Program; Visit Provider Student in an Organized Health Care Education/Training Program
DX: R74.8 Abnormal levels of other serum enzymes (principal)
CPT/HCPCS: 76705

== ENCOUNTER → 2025-09-14 10:22 | Outpatient (BNV) | payer OTHER, SELFPAY | PROVIDERS: PCP Student in an Organized Health Care Education/Training Program; Visit Provider Radiology Body Imaging | DX: R16.0 Hepatomegaly, not elsewhere classified (principal) | CPT/HCPCS: 76705 ==